=== PATIENT | male | born 1955 ===

== ENCOUNTER 2016-08-03 20:44 | Emergency (ER) | payer SELFPAY ==
[2016-08-03 20:44] VITALS: BMI 28.1
[2016-08-03 20:59] VITALS: TEMP 98
[2016-08-03] MEDS ORDERED: Lidocaine 1% Inj (20ml) ONE (21:27)
[2016-08-03] MEDS ORDERED: TDAP Vaccine 0.5 mL Syr IM ONE (22:34)
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
[2016-08-04 00:05] VITALS: BP 175/93; PULSE 62
[2016-08-04 00:17] VITALS: RESP 16; O2SAT 99
== END 2016-08-04 00:17 | disposition home or self-care (01) ==
LOC: ED 20:44
DX: S01.111A Laceration without foreign body of right eyelid and periocular area, initial encounter (principal); Y04.0XXA Assault by unarmed brawl or fight, initial encounter; Y93.01 Activity, walking, marching and hiking; Y92.410 Unspecified street and highway as the place of occurrence of the external cause

== ENCOUNTER 2016-08-11 15:21 | Emergency (ER) | payer SELFPAY ==
--- NOTE | 2016-08-11 15:26 | ED PDOC ---
Arrival/HPI - General Time Seen by Provider: 08/11/16 15:23 Historian: Patient - History of Present Illness Narrative History of Present Illness (Text): 08/11/16 15:24 60 y/o male, pmh including htn, nkda, c/o here for the suture removal on the facial x 7 days. Wound healing well and dry, no fever or chills, no headache or night sweat, no dizziness, no change in vision, no other medical or psychological complaints. Past Medical History - Provider Review Nursing Documentation Reviewed: Yes - Infectious Disease Hx of Infectious Diseases: None - Tetanus Immunization Tetanus Immunization: Unknown - Cardiac Hx Cardiac Disorders: Yes Hx Hypertension: Yes - Pulmonary Hx Respiratory Disorders: No - Neurological Hx Neurological Disorder: No - HEENT Hx HEENT Disorder: No - Renal Hx Renal Disorder: No - Endocrine/Metabolic Hx Endocrine Disorders: No - Hematological/Oncological Hx Blood Disorders: No - Integumentary Hx Dermatological Disorder: No - Musculoskeletal/Rheumatological Hx Musculoskeletal Disorders: No - Gastrointestinal Hx Gastrointestinal Disorders: No - Genitourinary/Gynecological Hx Genitourinary Disorders: No - Psychiatric Hx Psychophysiologic Disorder: No Hx Substance Use: No - Anesthesia Hx Anesthesia: No Family/Social History - Physician Review Nursing Documentation Reviewed: Yes Family/Social History: Unknown Family HX Smoking Status: Current Some Days Smoker Hx Alcohol Use: Yes Hx Substance Use: No Allergies/Home Meds Allergies/Adverse Reactions: Allergies No Known Allergies Allergy (Verified 08/11/16 15:27) Review of Systems - Review of Systems Constitutional: absent: Fatigue, Fevers Eyes: absent: Vision Changes ENT: absent: Hearing Changes Respiratory: absent: SOB, Cough Cardiovascular: absent: Chest Pain Gastrointestinal: absent: Abdominal Pain, Diarrhea, Nausea, Vomiting Skin: Other (laceration). absent: Rash, Pruritis, Skin Lesions, Abscess, Ulcer , Cellulitis Physical Exam Vital Signs Reviewed: Yes Temperature: Afebrile Blood Pressure: Normal Pulse: Regular Respiratory Rate: Normal Appearance: Positive for: Well-Appearing, Non-Toxic, Comfortable Pain Distress: None Mental Status: Positive for: Alert and Oriented X 3 - Systems Exam Head: Present: Atraumatic, Normocephalic, Other (Rt. medial eyebrow visible T- shaped laceration with 6 sutures with prolene material, no oozing/discharge, no cellulitis or streaking, no ulcers. ). No: Tenderness, Contusion, Swelling, Ecchymosis, Abrasion, Laceration Pupils: Present: PERRL Neck: Present: Normal Range of Motion. No: MIDLINE TENDERNESS Cardiovascular: Present: Regular Rate and Rhythm, Normal S1, S2 Abdomen: Present: Normal Bowel Sounds. No: Tenderness, Distention Back: Present: Normal Inspection Upper Extremity: Present: Normal Inspection. No: Cyanosis, Edema Lower Extremity: Present: Normal Inspection. No: Edema, CALF TENDERNESS Neurological: Present: GCS=15, Speech Normal, Motor Func Grossly Intact, Gait Normal, Memory Normal Skin: Present: Warm, Dry, Normal Color Lymphatic: No: Cervical Adenopathy Psychiatric: Present: Alert, Oriented x 3, Normal Insight, Normal Concentration Medical Decision Making ED Course and Treatment: 08/11/16 15:25 -6 sutures removed with the scar noted, no oozing/discharge. -Discharge home with education on follow up with your own pmd within 2 days, return to the ER for any new or worsening signs or symptoms. - PA / REPORTS ANALYST / Resident Statement /DO has reviewed & agrees with the documentation as recorded. Disposition/Present on Arrival - Present on Arrival Any Indicators Present on Arrival: No History of DVT/PE: No History of Uncontrolled Diabetes: No Urinary Catheter: No History of Decub. Ulcer: No History Surgical Site Infection Following: None - Disposition Have Diagnosis and Disposition been Completed?: Yes Diagnosis: Encounter for removal of sutures Disposition: HOME/ ROUTINE Disposition Time: 15:26 Patient Plan: Discharge Condition: GOOD Additional Instructions: Discharge home with education on follow up with your own pmd within 2 days, return to the ER for any new or worsening signs or symptoms. Referrals: [facility] [Outside] - Follow up with primary Forms: WORK NOTE
[2016-08-11 15:27] VITALS: BMI 26.3
[2016-08-11 15:44] VITALS: PULSE 63; RESP 16; TEMP 98; O2SAT 99
[2016-08-11 15:45] VITALS: BP 148/78
== END 2016-08-11 15:45 | disposition home or self-care (01) ==
LOC: ED 15:21
DX: Z48.02 Encounter for removal of sutures (principal)